=== PATIENT | female | born 1955 | race Caucasian/White ===

== ENCOUNTER 2020-02-24 13:33 | Emergency (ER) | payer MEDICARE, SELFPAY ==
[~2020-02-24 13:33] MED LIST: ACETAMINOPHEN500 M1 PO; BACLOFEN10 MG PO; BUSPAR5 MG PO; CHLORTHALIDONE25 MG PO; COZAAR100 MG PO; DICYCLOMINE HCL20 MG PO; GABAPENTIN600 MG PO; HYDRALAZINE 50M50 MG PO; LEVAQUIN750 MG PO; NORCO 5-325 TA1 EACH PO; PREDNISONE 20MG20 MG PO; ROSUVASTATIN CA40 MG PO; SPIRIVA RESPIMAT4 GM INH; SYMBICORT 16010.2 GM INH; TENORMIN50 MG PO; THEOPHYLLINE 3300 MG PO; VENTOLIN (1.25 MG/3 INH; VENTOLIN HFA IN18 GM INH; VOLTAREN **OUT75 MG PO; ZOFRAN4 MG PO
[2020-02-24 15:44] LABS: BASOPHIL 0.3 % (0-2); EOSINOPHIL 0.6 % (0-7); HCT 45.5 % (37.0-47.0); HGB 13.5 g/dl (12.5-16.0); MCH 30.5 pg (25.0-31.0); MCHC 29.7 g/dL (32.0-36.0); MCV 102.7 fL (78.0-100.0); MONOCYTE 7.7 % (0-12); MPV 9.1 fL (6.0-9.5); NEUTROPHIL 78.1 % (41-80); NRBC 0; PLT 312 K/uL (150-400); RBC 4.43 M/uL (4.20-5.40); RDW 12.5 % (11.5-14.0)
[2020-02-24 16:16] LABS: ALBUMIN 3.5 g/dL (3.4-5.0); BILIRUBIN - TOTAL 0.6 mg/dL (0.2-1.0); BUN/CREAT RATIO (CALC) 18.5 RATIO; CREATININE 1.08 mg/dL (0.51-0.95); GLOBULIN (CALCULATION) 4.4 g/dL; POTASSIUM 3.9 mmol/L (3.5-5.1); TOTAL PROTEIN 7.9 g/dL (6.4-8.2)
[2020-02-24 17:56] LABS: BILIRUBIN NEGATIVE (NEGATIVE); BLOOD NEGATIVE Ery/uL (NEGATIVE); CLARITY CLEAR (CLEAR); COLOR YELLOW (YELLOW); GLUCOSE (U) NORMAL (NORMAL); LEUKOCYTES NEGATIVE Leu/uL (NEGATIVE); NITRITE NEGATIVE (NEGATIVE); PROTEIN NEGATIVE (NEGATIVE); UROBILINOGEN 0.2 mg/dL (0.2-1.0)
[2020-02-24] MEDS ORDERED: ZOFRAN4 M1 PO (19:02)
[2020-05-06] MEDS ORDERED: DALIRESP500 MCG PO (15:41)
[2020-05-06] MEDS ORDERED: GABAPENTIN600 MG PO (15:41)
[2020-05-06] MEDS ORDERED: ATENOLOL-CHLOR1 EACH PO (15:44)
[2020-05-06] MEDS ORDERED: ROPINIROLE HCL0.5 MG PO (15:44)
[2020-05-06] MEDS ORDERED: COZAAR 100MG T100 MG PO (15:46)
[2020-05-06] MEDS ORDERED: OXYGEN INH (15:46)
[2020-05-06] MEDS ORDERED: VENTOLIN (2.5 MG/3 M INH (15:48)
[2020-05-06] MEDS ORDERED: XARELTO10 MG PO (15:49)
== END 2020-02-24 19:22 | disposition home or self-care (01) ==
LOC: FER 13:33
PROVIDERS: Nurse Practitioner Family
DX: R55 Syncope and collapse (principal); R11.2 Nausea with vomiting, unspecified; I10 Essential (primary) hypertension; E78.5 Hyperlipidemia, unspecified; J43.9 Emphysema, unspecified; Z88.5 Allergy status to narcotic agent; Z79.899 Other long term (current) drug therapy
CPT/HCPCS: 36415; 70450; 71046; 80053; 81003; 84484; 85025; 93005; J2405

== ENCOUNTER → 2020-05-10 | Day surgery (SDC) | payer MEDICARE, SELFPAY ==
[~2020-05-10] VITALS: Ht 160 cm; Wt 89.5 kg
[~2020-05-10] MED LIST changes: +ATENOLOL-CHLOR1 EACH PO; +COZAAR 100MG T100 MG PO; +DALIRESP500 MCG PO; +OXYGEN INH; +ROPINIROLE HCL0.5 MG PO; +VENTOLIN (2.5 MG/3 M INH; +XARELTO10 MG PO; +ZOFRAN4 M1 PO
[2020-05-10 11:09] LABS: POTASSIUM 3.9 mmol/L (3.5-5.1)
[2020-05-10 13:21] LABS: BASOPHIL 0.5 % (0-2); EOSINOPHIL 0.4 % (0-7); HCT 39.8 % (37.0-47.0); HGB 12.8 g/dl (12.5-16.0); LYMPHOCYTE 7.4 % (15-48); MCH 32.1 pg (25.0-31.0); MCHC 32.2 g/dL (32.0-36.0); MCV 99.7 fL (78.0-100.0); MONOCYTE 7.9 % (0-12); MPV 9.3 fL (6.0-9.5); NEUTROPHIL 82.5 % (41-80); NRBC 0; PLT 284 K/uL (150-400); RBC 3.99 M/uL (4.20-5.40); RDW 13.2 % (11.5-14.0); WBC 14.5 K/uL (4.0-10.5)
[2020-05-10 13:59] LABS: ALBUMIN 3.2 g/dL (3.4-5.0); BILIRUBIN - TOTAL 0.4 mg/dL (0.2-1.0); CREATININE 1.08 mg/dL (0.51-0.95); GLOBULIN (CALCULATION) 3.7 g/dL; POTASSIUM 3.8 mmol/L (3.5-5.1); TOTAL PROTEIN 6.9 g/dL (6.4-8.2)
[2020-05-10 14:12] LABS: CKMB 1.9 ng/mL (0.0-3.6)
== END | disposition home or self-care (01) ==
LOC: FAS 09:56
PROVIDERS: Allergy & Immunology Allergy; Anesthesiology; Surgery
DX: I46.9 Cardiac arrest, cause unspecified (principal); C50.212 Malignant neoplasm of upper-inner quadrant of left female breast; J44.9 Chronic obstructive pulmonary disease, unspecified; F41.9 Anxiety disorder, unspecified; I10 Essential (primary) hypertension; I51.9 Heart disease, unspecified; I95.9 Hypotension, unspecified; I48.91 Unspecified atrial fibrillation; E78.00 Pure hypercholesterolemia, unspecified; E78.5 Hyperlipidemia, unspecified; M81.0 Age-related osteoporosis without current pathological fracture; Z88.5 Allergy status to narcotic agent; Z87.891 Personal history of nicotine dependence; Z79.01 Long term (current) use of anticoagulants; Z78.0 Asymptomatic menopausal state; Z90.49 Acquired absence of other specified parts of digestive tract; Z98.890 Other specified postprocedural states; Z82.49 Family history of ischemic heart disease and other diseases of the circulatory system; Z99.81 Dependence on supplemental oxygen; Z20.822 Contact with and (suspected) exposure to COVID-19; Z53.8 Procedure and treatment not carried out for other reasons
CPT/HCPCS: 36415; 71045; 80048; 80053; 82553; 83880; 84484; 85025; C1788; J0171; J0690; J1644; J1650; J2250; J2310; J2704; J3010; J7120

== ENCOUNTER 2020-12-01 10:19 | Emergency (ER) | payer OTHER ==
[~2020-12-01 10:19] MED LIST changes: +AMLODIPINE BESYL5 MG PO; +BUMEX1 MG PO; +ESCITALOPRAM OX10 MG PO; +OXYCODONE-ACET1 EAC1 PO; +OXYGEN; +PERCOCET 5-3251 EACH PO
[2020-12-01 11:38] LABS: BASOPHIL 0.3 % (0-2); EOSINOPHIL 0 % (0-7); HCT 33.1 % (37.0-47.0); HGB 10.2 g/dl (12.5-16.0); MCH 31.4 pg (25.0-31.0); MCHC 30.8 g/dL (32.0-36.0); MCV 101.8 fL (78.0-100.0); MONOCYTE 1.5 % (0-12); MPV 8.8 fL (6.0-9.5); NEUTROPHIL 84.1 % (41-80); NRBC 0; PLT 220 K/uL (150-400); RBC 3.25 M/uL (4.20-5.40); RDW 13.6 % (11.5-14.0); WBC 3.3 K/uL (4.0-10.5)
[2020-12-01 11:59] LABS: ALBUMIN 3.3 g/dL (3.4-5.0); BILIRUBIN - TOTAL 0.4 mg/dL (0.2-1.0); BUN/CREAT RATIO (CALC) 26.2 RATIO; CREATININE 0.65 mg/dL (0.51-0.95); GLOBULIN (CALCULATION) 3.5 g/dL; POTASSIUM 4.4 mmol/L (3.5-5.1); TOTAL PROTEIN 6.8 g/dL (6.4-8.2)
[2020-12-01] MEDS ORDERED: VIBRAMYCIN100 MG PO (13:15)
[2020-12-01] MEDS ORDERED: PREDNISONE 20MG20 MG PO (13:15)
== END 2020-12-01 13:58 | disposition home or self-care (01) ==
LOC: FER 10:19
PROVIDERS: Internal Medicine
DX: J44.1 Chronic obstructive pulmonary disease with (acute) exacerbation (principal); C50.012 Malignant neoplasm of nipple and areola, left female breast; D64.9 Anemia, unspecified; Z20.822 Contact with and (suspected) exposure to COVID-19
CPT/HCPCS: 36415; 71045; 80053; 84145; 84484; 85025; 93005; 94640; J1100; U0002

== ENCOUNTER 2021-03-06 16:38 | Inpatient (IN) | payer OTHER ==
[~2021-03-06] VITALS: Ht 160 cm; Wt 76.2 kg
[~2021-03-06 16:38] MED LIST changes: +VIBRAMYCIN100 MG PO
[2021-03-06 17:26] LABS: BASOPHIL 0.3 % (0-2); EOSINOPHIL 0 % (0-7); HCT 18.8 % (37.0-47.0); LYMPHOCYTE 24.9 % (15-48); MCH 32.6 pg (25.0-31.0); MCHC 30.9 g/dL (32.0-36.0); MCV 105.6 fL (78.0-100.0); MONOCYTE 10.5 % (0-12); MPV 9.3 fL (6.0-9.5); NEUTROPHIL 61.1 % (41-80); NRBC 0; PLT 332 K/uL (150-400); RBC 1.78 M/uL (4.20-5.40); RDW 17.5 % (11.5-14.0); WBC 3.7 K/uL (4.0-10.5)
[2021-03-06 17:45] LABS: HGB 5.8 g/dl (12.5-16.0)
[2021-03-06 17:55] LABS: ALBUMIN 2.3 g/dL (3.4-5.0); BILIRUBIN - TOTAL 0.5 mg/dL (0.2-1.0); BUN/CREAT RATIO (CALC) 14.3 RATIO; CREATININE 0.56 mg/dL (0.51-0.95); GLOBULIN (CALCULATION) 3.7 g/dL; POTASSIUM 3.1 mmol/L (3.5-5.1)
[2021-03-06 18:42] LABS: LACTIC ACID 0.9 mmol/L (0.4-1.9)
[2021-03-06 18:55] LABS: BILIRUBIN 1+ mg/dL (NEGATIVE); BLOOD NEGATIVE Ery/uL (NEGATIVE); CLARITY CLEAR (CLEAR); COLOR YELLOW (YELLOW); GLUCOSE (U) NORMAL (NORMAL); LEUKOCYTES NEGATIVE Leu/uL (NEGATIVE); NITRITE NEGATIVE (NEGATIVE); PROTEIN TRACE (LOW) mg/dL (NEGATIVE); SPECIFIC GRAVITY 1.015 (1.001-1.030)
[2021-03-07 00:36] LABS: INR 1.05 (0.9-1.2); PROTHROMBIN TIME 13.1 SECONDS (11.8-13.4); PTT 28.4 SECONDS (24.4-34.7)
[2021-03-07 01:14] LABS: FOLIC ACID (SERUM) 14.1 ng/mL (8.6-58.9); MAGNESIUM 2.1 mg/dL (1.8-2.4)
[2021-03-07] MEDS ORDERED: DALIRESP500 MCG PO (01:54)
[2021-03-07] MEDS ORDERED: PERCOCET 7.5/321 TAB PO (01:57)
[2021-03-07] MEDS ORDERED: SYMBICORT 80-10.2 GM INH (01:59)
[2021-03-07 09:11] LABS: BASOPHIL 0 % (0-2); EOSINOPHIL 0 % (0-7); LYMPHOCYTE 30.9 % (15-48); MCH 31.6 pg (25.0-31.0); MCHC 33.1 g/dL (32.0-36.0); MONOCYTE 7.4 % (0-12); MPV 9.5 fL (6.0-9.5); NEUTROPHIL 57.4 % (41-80); NRBC 0; PLT 243 K/uL (150-400); RBC 3.76 M/uL (4.20-5.40); RDW 20.4 % (11.5-14.0)
[2021-03-07 09:17] LABS: BUN/CREAT RATIO (CALC) 21.2 RATIO; CREATININE 0.66 mg/dL (0.51-0.95)
[2021-03-07 09:25] LABS: HGB 11.9 g/dl (12.5-16.0); MCV 95.7 fL (78.0-100.0); WBC 1.9 K/uL (4.0-10.5)
[2021-03-08 06:32] LABS: BASOPHIL 0.1 % (0-2); EOSINOPHIL 0 % (0-7); HCT 34.4 % (37.0-47.0); HGB 11.1 g/dl (12.5-16.0); LYMPHOCYTE 11.2 % (15-48); MCH 31.4 pg (25.0-31.0); MCHC 32.3 g/dL (32.0-36.0); MCV 97.2 fL (78.0-100.0); MONOCYTE 4.9 % (0-12); MPV 9.9 fL (6.0-9.5); NEUTROPHIL 82.5 % (41-80); NRBC 0; PLT 287 K/uL (150-400); RBC 3.54 M/uL (4.20-5.40); RDW 21.1 % (11.5-14.0)
[2021-03-08 06:37] LABS: WBC 7.4 K/uL (4.0-10.5)
[2021-03-08 06:51] LABS: BUN/CREAT RATIO (CALC) 33.8 RATIO; CREATININE 0.65 mg/dL (0.51-0.95); POTASSIUM 3.8 mmol/L (3.5-5.1)
--- NOTE | 2021-03-08 11:45 | NUR ---
CALL TO [facility] TO INFORM DR FERMIN THAT PATIENT HAS BEEN HERE SINCE SUNDAY AND WAS NOT ABLE TO MAKE HER APT. INFORMED OF COVID +, HE WILL BE AVAILABLE FOR THE HOSPITALIST FOR ANY QUESTIONS OR INFORMATION THEY NEED
[2021-03-10 06:45] LABS: BASOPHIL 0.3 % (0-2); EOSINOPHIL 0 % (0-7); HCT 35.8 % (37.0-47.0); HGB 11.6 g/dl (12.5-16.0); LYMPHOCYTE 8.9 % (15-48); MCH 31.9 pg (25.0-31.0); MCHC 32.4 g/dL (32.0-36.0); MCV 98.4 fL (78.0-100.0); MONOCYTE 7.2 % (0-12); MPV 9.5 fL (6.0-9.5); NEUTROPHIL 81.3 % (41-80); NRBC 0; PLT 331 K/uL (150-400); RBC 3.64 M/uL (4.20-5.40); WBC 9.3 K/uL (4.0-10.5)
[2021-03-10 07:31] LABS: BUN/CREAT RATIO (CALC) 48.4 RATIO; CREATININE 0.62 mg/dL (0.51-0.95); POTASSIUM 3.6 mmol/L (3.5-5.1)
[2021-03-11] MEDS ORDERED: PREDNISONE 20MG20 MG PO (11:31)
[2021-03-11] MEDS ORDERED: CEFDINIR300 MG PO (11:31)
[2021-03-11] MEDS ORDERED: VIBRAMYCIN100 MG PO (11:31)
--- NOTE | 2021-03-11 11:36 | NUR ---
SPOKE [facility] PT. VIA TC SHE IS IN ISOLATION. PT. REPORTS THAT SHE HAS INTREPID HH. SHE IS ON 3 L OF O2 AT HOME, BUT WILL BE D/C HOME ON 5L. PT. WOULD LIKE A 04/19. ADVISED LETICIA BROWN AND DR. ORR. OF THE ORDER SENT TO [facility].
--- NOTE | 2021-03-11 11:38 | NUR ---
TC TO [email or web address], SPOKE WITH KAMINI. ADVISED HER THAT PT WILL BE D/C HOME TODAY.
== END 2021-03-11 13:40 | disposition home health service (06) | DRG 177 ==
LOC: FER 16:38 → FMS 21:27
PROVIDERS: Allergy & Immunology; Allergy & Immunology Allergy; Emergency Medicine; Internal Medicine; ADMIT Internal Medicine
PROC: XW033E5 Introduction of Remdesivir Anti-infective into Peripheral Vein, Percutaneous Approach, New Technology Group 5 (ICD-10-PCS; principal; 2021-03-06)
PROC: 3E0333Z Introduction of Anti-inflammatory into Peripheral Vein, Percutaneous Approach (ICD-10-PCS; 2021-03-06)
PROC: 30233N1 Transfusion of Nonautologous Red Blood Cells into Peripheral Vein, Percutaneous Approach (ICD-10-PCS; 2021-03-06)
PROC: 8E0ZXY6 Isolation (ICD-10-PCS; 2021-03-06)
PROC: XW0DXM6 Introduction of Baricitinib into Mouth and Pharynx, External Approach, New Technology Group 6 (ICD-10-PCS; 2021-03-07)
DX: U07.1 COVID-19 (principal); J12.82 Pneumonia due to coronavirus disease 2019; J96.21 Acute and chronic respiratory failure with hypoxia; J96.22 Acute and chronic respiratory failure with hypercapnia; J15.9 Unspecified bacterial pneumonia; J44.1 Chronic obstructive pulmonary disease with (acute) exacerbation; J44.0 Chronic obstructive pulmonary disease with (acute) lower respiratory infection; I10 Essential (primary) hypertension; I48.91 Unspecified atrial fibrillation; D53.9 Nutritional anemia, unspecified; G89.29 Other chronic pain; G62.9 Polyneuropathy, unspecified; D70.9 Neutropenia, unspecified; C50.919 Malignant neoplasm of unspecified site of unspecified female breast; Z90.49 Acquired absence of other specified parts of digestive tract; Z88.6 Allergy status to analgesic agent; Z98.890 Other specified postprocedural states; Z79.899 Other long term (current) drug therapy; Z87.891 Personal history of nicotine dependence; Z82.49 Family history of ischemic heart disease and other diseases of the circulatory system; Z92.3 Personal history of irradiation; Z92.21 Personal history of antineoplastic chemotherapy; Z99.81 Dependence on supplemental oxygen; Z23 Encounter for immunization
CPT/HCPCS: 36415; 36430; 36600; 71045; 71275; 80048; 80053; 81003; 82607; 82728; 82746; 82803; 83605; 83735; 83880; 84145; 84484; 85025; 85379; 85610; 85730; 86140; 86850; 86900; 86901; 86922; 87040; 93005; 94010; 94640; 94760; 94762; 96365; 96366; 96367; 96375; C9399; J0456; J0696; J0780; J1642; J1940; J2405; J2920; J2930; J7050; P9016; Q9967; U0002